=== PATIENT | female | born 1990 | race Caucasian/White ===

== ENCOUNTER 2023-07-03 09:43 | Outpatient (CLI) | payer OTHER, SELFPAY ==
[2023-07-03 10:43] LABS: Ur HCG Qualitative* Negative (Negative)
--- NOTE | 2023-07-03 11:25 | W.ANESCHARGE ---
Anesthesia Charges Start Date/Time Anesthesia Start Date: 07/03/23 Anesthesia Start Time: 10:55 Stop Date/Time Anesthesia Stop Date: 07/03/23 Anesthesia Stop Time: 11:22
== END 2023-07-03 09:44 | disposition home or self-care (01) ==
LOC: OP CLINIC 09:48
PROVIDERS: Visit Provider Internal Medicine
DX: Z12.11 Encounter for screening for malignant neoplasm of colon (principal); K64.8 Other hemorrhoids; Z80.0 Family history of malignant neoplasm of digestive organs
CPT/HCPCS: 00812; 45378; 81025; J2704